=== PATIENT | male | born 1995 | race Caucasian/White ===

== ENCOUNTER 2018-03-15 01:15 | Emergency (ER) | payer OTHER ==
--- NOTE | 2018-03-15 01:43 | EDPHYS ---
Physician Documentation [facility] Name: Octavio Alonso Age: 22 yrs Sex: Male : 1995 Arrival Date: 03/15/2018 Time: 01:16 Bed 18 Private MD: ED Physician Jorge Ross HPI: 03/15 01:39 This 22 yrs old Male presents to ER via Ambulatory with complaints of Right jr8 side pain, Congestion. 01:39 Onset: The symptoms/episode began/occurred gradually, 2 day(s) ago. Associated signs jr8 and symptoms: The patient has no apparent associated signs or symptoms. Modifying factors: The patient symptoms are alleviated by nothing, the patient symptoms are aggravated by nothing. The patient has not experienced similar symptoms in the past. The patient has not recently seen a physician. Stated that he has over the past few days been getting sharp pains that last about a minute to the right lower rib region that shoots up to right anterior chest wall. Denies trauma. Stated that he had some sinus congestion that is going away but denies any other symptoms . Historical: - Allergies: 01:28 No Known Allergies; lp1 - Home Meds: 01:28 None [Active]; lp1 - PMHx: 01:28 None; lp1 - PSHx: 01:28 hand surgery; lp1 - Immunization history:: Adult Immunizations up to date. - Social history:: Smoking status: Patient/guardian denies using tobacco. - Ebola Screening: : No symptoms or risks identified at this time. ROS: 01:39 Eyes: Negative for injury, pain, redness, and discharge, ENT: Negative for injury, jr8 pain, and discharge, Neck: Negative for injury, pain, and swelling, Respiratory: Negative for shortness of breath, cough, wheezing, and pleuritic chest pain, Abdomen/GI: Negative for abdominal pain, nausea, vomiting, diarrhea, and constipation, Back: Negative for injury and pain, MS/Extremity: Negative for injury and deformity, Skin: Negative for injury, rash, and discoloration, Neuro: Negative for headache, weakness, numbness, tingling, and seizure. 01:39 Cardiovascular: Positive for chest pain, Negative for edema, orthopnea, palpitations, paroxysmal nocturnal dyspnea. Exam: 01:39 Eyes: Pupils equal round and reactive to light, extra-ocular motions intact. Lids and jr8 lashes normal. Conjunctiva and sclera are non-icteric and not injected. Cornea within normal limits. Periorbital areas with no swelling, redness, or edema. ENT: Nares patent. No nasal discharge, no septal abnormalities noted. Tympanic membranes are normal and external auditory canals are clear. Oropharynx with no redness, swelling, or masses, exudates, or evidence of obstruction, uvula midline. Mucous membranes moist. Neck: Trachea midline, no thyromegaly or masses palpated, and no cervical lymphadenopathy. Supple, full range of motion without nuchal rigidity, or vertebral point tenderness. No Meningismus. Chest/axilla: Normal chest wall appearance and motion. Nontender with no deformity. No lesions are appreciated. Cardiovascular: Regular rate and rhythm with a normal S1 and S2. No gallops, murmurs, or rubs. Normal PMI, no JVD. No pulse deficits. Respiratory: Lungs have equal breath sounds bilaterally, clear to auscultation and percussion. No rales, rhonchi or wheezes noted. No increased work of breathing, no retractions or nasal flaring. Abdomen/GI: Soft, non-tender, with normal bowel sounds. No distension or tympany. No guarding or rebound. No evidence of tenderness throughout. Back: No spinal tenderness. No costovertebral tenderness. Full range of motion. Skin: Warm, dry with normal turgor. Normal color with no rashes, no lesions, and no evidence of cellulitis. MS/ Extremity: Pulses equal, no cyanosis. Neurovascular intact. Full, normal range of motion. Neuro: Awake and alert, GCS 15, oriented to person, place, time, and situation. Cranial nerves II-XII grossly intact. Motor strength 5/5 in all extremities. Sensory grossly intact. Cerebellar exam normal. Normal gait. Vital Signs: 01:28 BP 134 / 85; Pulse 87; Resp 18; Temp 99.3(O); Pulse Ox 98% on R/A; Weight 97.52 kg; lp1 Height 6 ft. 1 in. (185.42 cm); Pain 0/10; 01:28 Body Mass Index 28.37 (97.52 kg, 185.42 cm) lp1 MDM: 01:29 Patient medically screened. jr8 01:39 Data reviewed: vital signs, nurses notes, and as a result, I will discharge patient. jr8 Data interpreted: Pulse oximetry: on room air is 98 %. Interpretation: normal. Counseling: I had a detailed discussion with the patient and/or guardian regarding: the historical points, exam findings, and any diagnostic results supporting the discharge/admit diagnosis, the need for outpatient follow up, a family practitioner, to return to the emergency department if symptoms worsen or persist or if there are any questions or concerns that arise at home. ED course: Pain currently gone. Could not reproduce pain upon manipulation or palpation. Based on where patient stated that pain was, more then likely musculoskeletal in nature. Denied n/v/d, fevers, or worsening of pain with food. Will start on NSAID. If worse or not going away to come back or f/u for further evaluation . Administered Medications: No medications were administered Disposition: 06:49 Co-signature as Attending Physician, Jorge Ross MD Available for consultation at ps1 all times. . Disposition: 03/15/18 01:43 Discharged to Home. Impression: Intercostal pain. - Condition is Stable. - Discharge Instructions: Chest Wall Pain. - Prescriptions for Ibuprofen 800 mg Oral Tablet - take 1 tablet by ORAL route every 12 hours As needed take with food; 20 tablet. - Medication Reconciliation Form, Thank You Letter, Antibiotic Education, Prescription Opioid Use form. - Follow up: Private Physician; When: 1 week; Reason: Recheck today's complaints, Continuance of care, Re-evaluation by your physician. - Problem is new. - Symptoms are resolved. Signatures: Marleny Rivera RN RN lp1 Ronald Roman PA PA jr8 Jamarcus Braswell RN RN jb4 Jorge Ross MD MD ps1 Corrections: (The following items were deleted from the chart) 01:55 01:43 03/15/2018 01:43 Discharged to Home. Impression: Intercostal pain. Condition is jb4 Stable. Forms are Medication Reconciliation Form, Thank You Letter, Antibiotic Education, Prescription Opioid Use. Follow up: Private Physician; When: 1 week; Reason: Recheck today's complaints, Continuance of care, Re-evaluation by your physician. Problem is new. Symptoms are resolved. jr8
--- NOTE | 2018-03-15 01:43 | ER ---
Nurse's Notes [facility] Name: Octavio Alonso Age: 22 yrs Sex: Male : 1995 Arrival Date: 03/15/2018 Time: 01:16 Bed 18 Private MD: Diagnosis: Intercostal pain Presentation: 03/15 01:25 Presenting complaint: Patient states: Abdominal pain to RUQ that comes and goes, lp1 occurred tonight with severe pain, resolved at this time; Denies any Nausea, vomiting, diarrhea. Transition of care: patient was not received from another setting of care. Onset of symptoms was March 15, 2018. Risk Assessment: Do you want to hurt yourself or someone else? Patient reports no desire to harm self or others. Initial Sepsis Screen: Does the patient meet any 2 criteria? No. Patient's initial sepsis screen is negative. Does the patient have a suspected source of infection? No. Patient's initial sepsis screen is negative. Care prior to arrival: None. 01:25 Method Of Arrival: Ambulatory lp1 01:25 Acuity: GILLES 3 lp1 Triage Assessment: 01:55 General: Behavior is calm, cooperative. Respiratory: Airway is patent Respiratory jb4 effort is even, unlabored, Respiratory pattern is regular, symmetrical, Breath sounds are clear bilaterally. Historical: - Allergies: 01:28 No Known Allergies; lp1 - Home Meds: 01:28 None [Active]; lp1 - PMHx: 01:28 None; lp1 - PSHx: 01:28 hand surgery; lp1 - Immunization history:: Adult Immunizations up to date. - Social history:: Smoking status: Patient/guardian denies using tobacco. - Ebola Screening: : No symptoms or risks identified at this time. Screenin:29 Abuse screen: Denies threats or abuse. Denies injuries from another. Nutritional lp1 screening: No deficits noted. Tuberculosis screening: No symptoms or risk factors identified. Fall Risk None identified. Assessment: 01:53 General: Appears in no apparent distress. uncomfortable. Pain: Complains of pain in jb4 right breast Pain radiates to right clavicle and anterior aspect of right upper chest Pain currently is 3 out of 10 on a pain scale. Quality of pain is described as sharp, Pain began 2-3 days ago. Neuro: Level of Consciousness is awake, alert, obeys commands, Oriented to person, place, time, situation. Cardiovascular: Heart tones S1 S2 present Patient's skin is warm and dry. Respiratory: Airway is patent Respiratory effort is even, unlabored, Respiratory pattern is regular, symmetrical, Breath sounds are clear bilaterally. GI: No signs and/or symptoms were reported involving the gastrointestinal system. : No signs and/or symptoms were reported regarding the genitourinary system. EENT: No signs and/or symptoms were reported regarding the EENT system. Derm: Skin is intact, Skin is pink, warm \T\ dry. Musculoskeletal: Circulation, motion, and sensation intact. Vital Signs: 01:28 BP 134 / 85; Pulse 87; Resp 18; Temp 99.3(O); Pulse Ox 98% on R/A; Weight 97.52 kg; lp1 Height 6 ft. 1 in. (185.42 cm); Pain 0/10; 01:28 Body Mass Index 28.37 (97.52 kg, 185.42 cm) lp1 ED Course: 01:16 Patient arrived in ED. am2 01:22 Ronald Roman PA is PHCP. jr8 01:22 Jorge Ross MD is Attending Physician. jr8 01:27 Triage completed. lp1 01:28 Arm band placed on left wrist. lp1 01:46 Jamarcus Braswell, [place] is Primary Nurse. jb4 01:53 Patient has correct armband on for positive identification. Bed in low position. Call jb4 light in reach. Side rails up X 1. Pulse ox on. NIBP on. 01:53 No provider procedures requiring assistance completed. Patient did not have IV access jb4 during this emergency room visit. Administered Medications: No medications were administered Outcome: 01:43 Discharge ordered by . jr8 01:53 Discharged to home ambulatory. jb4 01:53 Condition: stable 01:53 Discharge instructions given to patient, Instructed on discharge instructions, follow up and referral plans. medication usage, Demonstrated understanding of instructions, follow-up care, medications, Prescriptions given X 1. 01:55 Patient left the ED. jb4 Signatures: Marleny Rivera RN RN lp1 Ronald Roman PA PA jr8 Jamarcus Braswell, [place] QUINTANILLA jb4 Orquidea Magaña am2
== END 2018-03-15 01:55 | disposition home or self-care (01) ==
LOC: ER 01:15
DX: R07.82 Intercostal pain (principal)
CPT/HCPCS: 99283